=== PATIENT | male | born 1970 | race Caucasian/White ===

== ENCOUNTER 2016-09-04 00:45 | Emergency (ER) | payer OTHER ==
[2016-09-04 01:47] LABS: HEMOGLOBIN 15.3 gm/dl (14.0-17.5); RED BLOOD COUNT 5.11 M/UL (4.20-5.50); WHITE BLOOD COUNT 9.1 K/UL (4.5-11.0)
[2016-09-04 02:16] LABS: BUN/CREATININE RATIO 16 (0-10)
== END 2016-09-04 02:37 | disposition home or self-care (01) ==
LOC: ER1 00:45
PROVIDERS: Family Medicine
DX: R07.9 Chest pain, unspecified (principal); R11.10 Vomiting, unspecified; R00.0 Tachycardia, unspecified; Z88.0 Allergy status to penicillin; Z88.1 Allergy status to other antibiotic agents; Z88.2 Allergy status to sulfonamides
CPT/HCPCS: 36415; 71010; 80053; 82550; 82553; 83874; 84484; 85025; 93005; 96361; 96374; 99285; G0480; J2405